=== PATIENT | female | born 1945 | race Caucasian/White ===

== ENCOUNTER 2017-11-27 08:28 | Day surgery (SDC) | payer OTHER ==
[2017-11-27 08:55] VITALS: PULSE 70
[2017-11-27] MEDS ORDERED: LR 1,000 ML IV ONE (08:57)
[2017-11-27] MEDS ORDERED: RANITIDINE 50 MG/2 ML VIAL IVP ONE (10:13)
--- NOTE | 2017-11-27 10:16 | PDANEPAE ---
ANE History of Present Illness 72 yo female with pancreatic cyst for EGD, EUS, sampling. ANE Past Medical History - Cardiovascular History Hx Hypertension: No Hx Arrhythmias: No Hx Chest Pain: No Hx Coronary Artery / Peripheral Vascular Disease: No Hx CHF / Valvular Disease: No Hx Palpitations: No - Pulmonary History Hx COPD: No Hx Asthma/Reactive Airway Disease: No Hx Recent Upper Respiratory Infection: No Hx Oxygen in Use at Home: No Hx Sleep Apnea: No Sleep Apnea Screening Result - Last Documented: Negative Pulmonary History Comment: hx of asthma in 30's x 3-4 yrs, no ER visits, last inhaler use about 5 yrs ago. - Neurologic History Hx Cerebrovascular Accident: No Hx Seizures: No Hx Dementia: No Neurologic History Comment: spinal stenosis- causes no pain at this time - Endocrine History Hx Diabetes: No Hypothyroid: No Endocrine History Comment: hx of hypothyroidism - Renal History Hx Renal Disorders: No - Liver History Hx Hepatic Disorders: No - Neurological & Psychiatric Hx Hx Neurological and Psychiatric Disorders: Yes Neurological / Psychiatric History Comment: anxiety over procedure - Cancer History Hx Cancer: No - Congenital Disorder History Hx Congenital Disorders: No - GI History Hx Gastrointestinal Disorders: Yes Gastrointestinal History Comment: pt considers herself to have constipation. yersinia- fasted for 11 days and took graperfruit extract and pcp feels she erradicated it. gas and bloating currently - Other Health History Other Health History: wears reading glasses - Chronic Pain History Chronic Pain: No - Surgical History Prior Surgeries: right ing hernia repair 2001. cataracts. tonsillectomy as child. wisdom teeth removed ANE Review of Systems Review of Systems: - Exercise capacity METS (RN): 4 METS - Systems Constitutional: Reports: no symptoms Cardiac: Reports: no symptoms Respiratory: Reports: no symptoms Gastrointestinal: Reports: abdominal distention (subjective gas/bloating) ANE Patient History - Allergies Allergies/Adverse Reactions: No Known Allergies Allergy (Verified 11/26/17 12:31) - Home Medications Home Medications: DIAZEPAM PRN 11/26/17 [Last Taken 11/23/17] Herbals/Supplements -Info Only 11/26/17 [Last Taken 11/24/17] Advil PRN 11/27/17 [Last Taken 11/26/17] - NPO status NPO Since - Liquids (Date): 11/27/17 NPO Since - Liquids (Time): 07:20 NPO Since - Solids (Date): 11/26/17 NPO Since - Solids (Time): 22:30 - Anes Hx Anes Hx: no prior problems - Smoking Hx Smoking Status: Never smoked - Family Anes Hx Family Anes Hx: neg - N/A Family Hx Anesthesia Complications: none ANE Labs/Vital Signs - Vital Signs Blood Pressure: 126/79 Heart Rate: 70 Respiratory Rate: 20 O2 Sat (%): 95 Height: 165.1 cm Weight: 58.967 kg ANE Physical Exam - Airway Neck exam: FROM Mallampati Score: Class 2 Mouth exam: normal dental/mouth exam - Pulmonary Pulmonary: no respiratory distress - Cardiovascular Cardiovascular: regular rate and rhythym - ASA Status ASA Status: II ANE Anesthesia Plan Anesthesia Plan: GA with mask
[2017-11-27] MEDS ORDERED: LIDOCAINE 2% 5 ML SDV ONE (10:17)
[2017-11-27] MEDS ORDERED: PROPOFOL/EMULSION 500 MG/50 ML BOTTLE IV ONE (10:17)
[2017-11-27] MEDS ORDERED: INDOMETHACIN 50 MG SUPP PR PRN (10:19)
--- NOTE | 2017-11-27 10:19 | PDGENHP ---
History & Physical Chief Complaint: pancreatic cyst History of Present Illness: 72 year old female presents for pancreatic cyst. Pertinent Past, Social, Family History: PMHx: back pain. PSurgHx: Inguinal hernia Relevant Physical Exam: HEENT: anicteric. Cv: RRR +s1s2. Lungs: CTAB. Abd: soft, nt, + bs Cardiorespiratory Assessment: ASA 2
[2017-11-27] MEDS ORDERED: levOFLOXACIN 500 MG/DEXTROSE 100 ML IV ONE (10:30)
[2017-11-27] MEDS ORDERED: FAMOTIDINE 20 MG/NACL 50 ML IV ONE (10:30)
[2017-11-27] MEDS ORDERED: NS 500 ML IV SCH (10:30)
[2017-11-27] MEDS ORDERED: levOFLOXACIN 500 MG/DEXTROSE/100 ML BAG IV ONE (10:31)
[2017-11-27] MEDS ORDERED: ONDANSETRON 4 MG/2 ML VIAL IVP PRN (10:59)
[2017-11-27] MEDS ORDERED: fentaNYL 100 MCG/2 ML INJ IVP PRN (10:59)
[2017-11-27] MEDS ORDERED: DIAZEPAM 5 MG/ML 1 ML SYR IVP PRN (10:59)
[2017-11-27] MEDS ORDERED: LR 500 ML IV PRN (10:59)
[2017-11-27] MEDS ORDERED: NALOXONE HCL 0.4 MG/ML INJ IVP PRN (10:59)
[2017-11-27] MEDS ORDERED: ALBUTEROL 3 ML DEYVIAL IH PRN (10:59)
--- NOTE | 2017-11-27 11:26 | GIREPORT ---
Formerly [facility], [facility] Surgical Services - Endoscopy Department Patient Name: Sonal Arana Procedure Date: 11/27/2017 10:00 AM Patient Type: Outpatient Attending MD/ ER Physician: Sandip Steel MD Procedure: Upper EUS Indications: Pancreatic cyst on CT scan, Dyspepsia Patient Profile: 72 year old female presents for evaluation of abnormal imaging. She has also been complaining of dyspepsia. Providers: Sandip Steel MD Medicines: Monitored Anesthesia Care Complications: No immediate complications. Estimated blood loss: Minimal. Description of Procedure: After obtaining informed consent, the endoscope was passed under direct vision. Throughout the procedure, the patient's blood pressure, pulse, and oxygen saturations were monitored continuously. The Endosonoscope was introduced through the mouth, and advanced to the second part of duoden um. The Endoscope was introduced through the mouth, and advanced to the sec ond part of duodenum. The upper EUS was accomplished without difficulty. Th e patient tolerated the procedure well. Findings: Endoscopic Finding : The examined esophagus was normal. Patchy mildly erythematous mucosa was found in the gastric body and in the gastric antrum. Biopsies were taken with a cold forceps for histology. The examined duodenum was normal. Biopsies for histology were taken wit h a cold forceps for evaluation of celiac disease. Endosonographic Finding : A multicystic lesion suggestive of a cyst was identified in the pancrea tic tail. It is not in obvious communication with the pancreatic duct. The lesion measured 20 mm by 25 mm in maximal cross-sectional diameter. The re were many compartments (approximately 6) thinly septated. The outer wal l of the lesion was thin. There was no associated mass or mural nodular. Diagnostic needle aspiration for fluid was performed. Color Doppler hubert ging was utilized prior to needle puncture to confirm a lack of significant vascular structures within the needle path. One pass was made with the 25 gauge needle using a transgastric approach. A stylet was used. The amou nt of fluid collected was 3 mL. The fluid was clear and thin. Sample(s) were sent for amylase concentration, cytology and CEA. Pancreatic parenchymal abnormalities were noted in the entire pancreas. These consisted of hyperechoic foci. The pancreatic duct had a prominently branched endosonographic appearan ce and had hyperechoic irvin in the entire pancreas. There was no sign of significant endosonographic abnormality in the ent aquilino main bile duct. An unremarkable gallbladder was identified. There was no sign of significant endosonographic abnormality in the visualized portion of the liver. No lymphadenopathy seen. Estimated Blood Loss: Estimated blood loss was minimal. Post Op Diagnosis: - Normal esophagus. - Erythematous mucosa in the gastric body and antrum. Biopsied. - Normal examined duodenum. Biopsied. - A cystic lesion was seen in the pancreatic tail. Fine needle aspirati on for fluid performed. - Pancreatic parenchymal abnormalities consisting of hyperechoic foci w ere noted in the entire pancreas. - The pancreatic duct had a prominently branched endosonographic appear ance and had hyperechoic irvin in the entire pancreas. These changes in the pancreas are not diagnostic of chronic pancreatitis. - There was no sign of significant pathology in the entire main bile du ct. - There was no evidence of significant pathology in the visualized port ion of the liver. - Etiology of cyst? Serous cysadenoma versus IPMN versus other? Await F NA results. If does not proceed with surgery, needs surveillance imaging. Recommendation: - Discharge patient to home (with escort). - Await cytology results and await path results. - Clear liquid diet today. - Continue present medications. - Thank you for allowing me to participate in the care of your patient. Attending Participation: I personally performed the entire procedure. Sandip Steel MD Sandip Steel MD 11/27/2017 11:26:29 AM This report has been signed electronicallySandip Steel MD Number of Addenda: 0 Note Initiated On: 11/27/2017 10:00 AM [email or web address]
[2017-11-27 12:46] VITALS: BP 112/78; RESP 19; TEMP 97.3; O2SAT 93
== END 2017-11-27 13:09 | disposition home or self-care (01) ==
LOC: FSGY 08:28
PROVIDERS: ATTEND Internal Medicine Gastroenterology
DX: K86.2 Cyst of pancreas (principal); R10.13 Epigastric pain; M43.02 Spondylolysis, cervical region; E03.9 Hypothyroidism, unspecified
CPT/HCPCS: J1956; J2704